=== PATIENT | male | born 1990 | race Two or more races ===

== ENCOUNTER 2017-06-27 11:57 | Emergency (ER) | payer SELFPAY ==
[2017-06-27 12:36] VITALS: BP 128/80; PULSE 65; RESP 20; TEMP 97; O2SAT 99
--- NOTE | 2017-06-27 13:05 | ED PDOC ---
HPI: Dental Pain/Injury Time Seen by Provider: 06/27/17 12:34 Chief Complaint (Nursing): Dental Pain Chief Complaint (Provider): Dental Pain History Per: Patient Onset/Duration Of Symptoms: Other (x 1) Current Symptoms Are (Timing): Still Present Additional Complaint(s): Pedrito is a 27 year old male who presents to the Emergency Department for a doctor's note for left-sided dental pain. Patient states he developed toothache for the past month. States he saw a dentist 1 and weeks ago and was told he required left lower wisdom tooth extraction. Admits to taking Tylenol with good relief, but missed work yesterday due to pain. Was asked by direct marketing manager to get doctors note. Patient would like to return to work. Denies smoking, drinking, allergies, and any other medical problems. PMD: No Family History Past Medical History Reviewed: Historical Data, Nursing Documentation, Vital Signs Vital Signs: Last Vital Signs Temp 97.0 F L 06/27/17 12:33 Pulse 65 06/27/17 12:33 Resp 20 06/27/17 12:33 BP 128/80 06/27/17 12:33 Pulse Ox 99 06/27/17 12:33 - Medical History PMH: No Chronic Diseases - Family History Family History: States: No Known Family Hx - Social History Current smoker - smoking cessation education provided: No Alcohol: None Drugs: Denies - Allergies Allergies/Adverse Reactions: Allergies Allergy/AdvReac Type Severity Reaction Status Date / Time No Known Allergies Allergy Verified 06/27/17 12:33 Review of Systems ROS Statement: Except As Marked, All Systems Reviewed And Found Negative ENT: Positive for: Mouth Pain (Left-sided dental pain) Physical Exam - Reviewed Nursing Documentation Reviewed: Yes Vital Signs Reviewed: Yes - Physical Exam Appears: Positive for: Non-toxic Head Exam: Positive for: ATRAUMATIC, NORMAL INSPECTION, NORMOCEPHALIC Skin: Positive for: Normal Color Eye Exam: Positive for: Normal appearance ENT: Positive for: Other (Left Lower Molar Tooth Tenderness, No gingival Tenderness) Respiratory: Negative for: Respiratory Distress Extremity: Positive for: Normal ROM Neurologic/Psych: Positive for: Alert, Oriented (x 3). Negative for: Aphasia, Facial Droop - ECG O2 Sat by Pulse Oximetry: 99 (RA) Pulse Ox Interpretation: Normal Medical Decision Making Medical Decision Making: Time: 12:44 Upon provider evaluation patient is medically stable, and requires no further treatment in the ED at this time. Patient will be discharged. Counseling was provided and all questions were answered regarding diagnosis and need for follow up with dentist. There is agreement to discharge plan. Return if symptoms persist or worsen. Scribe Attestation: Documented by Gaurang Ramirez, acting as a scribe for Harley Cordero PA-C Provider Scribe Attestation: All medical record entries made by the Scribe were at my direction and personally dictated by me. I have reviewed the chart and agree that the record accurately reflects my personal performance of the history, physical exam, medical decision making, and the department course for this patient. I have also personally directed, reviewed, and agree with the discharge instructions and disposition. Disposition - Clinical Impression Clinical Impression: Toothache - Patient ED Disposition Is Patient to be Admitted: No - Disposition Disposition: Routine/Home Disposition Time: 12:44 Condition: STABLE Instructions: Toothache (ED) Forms: [employer] ([place]), [facility] ED School/Work Excuse
== END 2017-06-27 12:45 | disposition home or self-care (01) ==
LOC: H.ER 11:57
DX: K08.89 Other specified disorders of teeth and supporting structures (principal)